=== PATIENT | male | born 1965 | race Two or more races ===

== ENCOUNTER 2022-03-25 09:04 | Outpatient (CLI) | payer OTHER ==
[~2022-03-25 09:04] MED LIST: ETODOLAC400 MG PO; TRAMADOL HCL50 MG PO
== END 2022-03-25 09:06 | disposition home or self-care (01) ==
LOC: SONOGRAMA 09:04
PROVIDERS: ATTEND General Practice
DX: M75.102 Unspecified rotator cuff tear or rupture of left shoulder, not specified as traumatic (principal); S43.402A Unspecified sprain of left shoulder joint, initial encounter; S46.312A Strain of muscle, fascia and tendon of triceps, left arm, initial encounter

== ENCOUNTER 2022-07-23 09:42 | Outpatient (CLI) | payer OTHER | END 2022-07-23 09:48 | disposition home or self-care (01) | LOC: RAD 09:42 | PROVIDERS: ATTEND Physical Medicine & Rehabilitation | DX: M54.51 Vertebrogenic low back pain (principal); M79.641 Pain in right hand ==

== ENCOUNTER 2024-02-18 10:37 | Outpatient (CLI) | payer OTHER ==
[~2024-02-18 10:37] MED LIST changes: +NABUMETONE750 MG PO
[2024-02-25] MEDS ORDERED: CELEBREX200MG PO (10:01)
== END 2024-02-18 10:41 | disposition home or self-care (01) ==
LOC: SONOGRAMA 10:37
PROVIDERS: ATTEND General Practice
DX: M25.572 Pain in left ankle and joints of left foot (principal)

== ENCOUNTER 2024-04-11 08:38 | Outpatient (CLI) | payer OTHER ==
[~2024-04-11 08:38] MED LIST changes: +CELEBREX200MG PO
== END 2024-04-11 08:44 | disposition home or self-care (01) ==
LOC: TOM 08:38
PROVIDERS: ATTEND Urology
DX: N20.0 Calculus of kidney (principal); N39.0 Urinary tract infection, site not specified; D64.9 Anemia, unspecified; N40.0 Benign prostatic hyperplasia without lower urinary tract symptoms; E29.1 Testicular hypofunction
CPT/HCPCS: 74178; Q9965

== ENCOUNTER → 2024-04-11 08:46 | Outpatient (CLI) | payer OTHER ==
[2024-04-11 09:45] LABS: CREATININE SERUM 0.96 mg/dL (0.70-1.30)
== END | disposition home or self-care (01) ==
LOC: LAB 08:46
PROVIDERS: ATTEND Radiology Diagnostic Radiology
DX: R10.30 Lower abdominal pain, unspecified (principal)